=== PATIENT | female | born 1975 | race Caucasian/White ===

== ENCOUNTER 2023-11-21 15:52 | Emergency (ER) | payer MEDICAID, SELFPAY ==
[2023-11-21] VITALS (11 sets, daily range): BP systolic 113–133; BP diastolic 66–104; PULSE 76–101; RESP 11–24; TEMP 36.7–36.9; O2SAT 97–100; BMI 34.4
--- NOTE | 2023-11-21 16:13 | EDS_ITS ---
HPI History of Present Illness Chief Complaint: Palpitations [facility] Medical History (Updated 11/21/23 @ 16:02 by Kemi Maxwell) Hx pulmonary embolism Hx of blood clots Home Medications ?Medication ?Instructions ?Recorded ?Last Taken ?Type montelukast 10 mg tablet 10 mg PO QHS 11/21/23 Unknown History Allergy/AdvReac Type Severity Reaction Status Date / Time No Known Allergies Allergy Verified 11/21/23 15:59 Surgical History (Updated 11/21/23 @ 16:02 by Kemi Maxwell) Hx of hernia repair Hx of cholecystectomy Social History Smoking Status: Never smoker EXAM Physical Exam Const Vital Signs: 11/21/23 15:53 11/21/23 16:10 11/21/23 16:14 Temperature 98.0 F Temperature Source Oral Pulse Rate 85 Respiratory Rate 20 H Respiratory Effort Normal Respiratory Pattern Normal Blood Pressure 128/66 H Blood Pressure Mean 86 Pulse Ox 100 Oxygen Delivery Method Room Air Room Air 11/21/23 16:24 11/21/23 16:30 11/21/23 16:45 Temperature Temperature Source Pulse Rate 77 81 76 Respiratory Rate 14 11 L 16 Respiratory Effort Respiratory Pattern Blood Pressure 122/91 H Blood Pressure Mean 102 Pulse Ox 99 98 99 Oxygen Delivery Method Room Air 11/21/23 17:01 11/21/23 17:04 11/21/23 17:15 Temperature Temperature Source Pulse Rate 90 98 92 Respiratory Rate 18 22 H 24 H Respiratory Effort Respiratory Pattern Blood Pressure 132/88 H Blood Pressure Mean 97 Pulse Ox 100 100 99 Oxygen Delivery Method Room Air 11/21/23 17:30 11/21/23 17:45 11/21/23 18:00 Temperature Temperature Source Pulse Rate 93 92 101 H Respiratory Rate 12 23 H 18 Respiratory Effort Respiratory Pattern Blood Pressure 133/94 H 133/104 H Blood Pressure Mean 104 110 Pulse Ox 97 97 98 Oxygen Delivery Method Room Air MDM MDM MDM Narrative Medical decision making narrative: HISTORY OF PRESENT ILLNESS: 48-year-old female presents with palpitations. Per patient for the past 24 hours heart rate has been fluctuating high and low per her from the 50s to the 170s. Elevated heart rate is since resolved. She states she had been experiencing she has chest pain is since resolved. Notes left leg swelling as well that began Friday. Denies any hemoptysis, estrogen use. Denies any syncope. Denies any abdominal pain. Denies any sore throat fever or cough. REVIEW OF SYSTEMS: Pertinent positives: Palpitations, leg swelling, chest pain Pertinent negatives: Shortness of breath PHYSICAL EXAM: Nursing triage notes reviewed, Vital signs reviewed Constitutional: please see [facility] HENT: MMM Eyes: Pupils equal round and reactive to light, Extraocular muscles intact Neck: No stridor, no JVD, full neck ROM Lungs: Clear to auscultation, No wheezing or rales. No increased work of breathing, no conversational dyspnea, no accessory muscle use, no nasal flaring. No respiratory distress noted Heart: Regular rate and rhythm, No murmurs, No rubs and No gallops, 2+ distal pulses (radial, femoral, posterior tibial) in all extremities Abdomen: Soft, there is no tenderness, rigidity, rebound or guarding, no obvious peritoneal signs, no palpable pulsatile abdominal masses, no auscultated abdominal bruit : No CVAT Extremities: No edema Neuro: No focal neurological deficits, cranial nerves II through XII intact, 5/5 strength in all extremities. Intact sensation to light touch in all extremities, 2+ reflexes bilateral patella tendons. Normal gait. No ataxia. Skin: No rash or lesions noted MEDICAL DECISION MAKING: Chief Complaint: Palpitations External records reviewed: No chart in [facility]. Reviewed [facility] Factors affecting care: history of PE [facility] Narrative: The patient was initially hemodynamically stable, afebrile, nontoxic-appearing. Exam without focal cardiopulmonary normalities. I considered the following differential diagnosis: PE, DVT, pneumonia, ACS, arrhythmia, anemia ALL IMAGES (IF OBTAINED) HAVE BEEN PERSONALLY REVIEWED AND INTERPRETED BY MYSELF. EKG with normal sinus rhythm, normal axis, normal intervals, no STEMI, no signs of right heart strain to suggest PE CBC with leukocytosis, no anemia, no thrombocytopenia BMP without evidence of significant electrolyte abnormalities, no anion gap, no acute kidney injury. High-sensitivity troponin is negative, no evidence of myocardial ischemia I have personally reviewed the patient's chest x-ray. Chest x-ray is unremarkable for pulmonary edema, pneumothorax, pneumonia or focal cardiopulmonary abnormality. CT of the chest is negative for PE Duplex ultrasound left lower extremities negative for DVT The synthesis of the patient's history, physical exam, labs images suggest no acute life-limiting etiology specifically no sign of PE DVT, Myocard ischemia, heart failure, significant anemia, septic electrolyte abnormalities, pneumonia or pneumothorax. The patient is appropriate discharge home with close outpatient follow with her PCP The patient and/or family, caregivers express understanding. The patient and/or family, caregivers agrees with the plan. Shared decision making: I will have a discussion with the patient and or visitors regarding risk/benefits of further testing or admission. They will be made aware of of the risk/benefits inherent in this decision they will be given the opportunity to voice understanding. Total critical care time today provided was at least 0 minutes. This excludes separately billable procedures. Critical care time (if documented) is secondary to the patient having high probability of clinically significant/life threatening deterioration in the patient's condition which required my urgent intervention. Impression: 1. Palpitations 2. Chest pain Dispo: Discharge This note was generated with [employer] dictation software. It may contain incorrect words, spelling, and punctuation that were not noted in review of the chart prior to signing. Lab Data Labs: Laboratory Results - last 24 hr 11/21/23 16:14 WBC 11.3 H RBC 4.54 Hgb 13.5 Hct 41.5 MCV 91.4 MCH 29.7 MCHC 32.5 RDW Std Deviation 48.7 H RDW Coeff of Ziyad 14.5 Plt Count 365 MPV 9.5 Immature Gran % (Auto) 0.700 Neut % (Auto) 69.3 Lymph % (Auto) 21.2 Prentiss % (Auto) 7.5 Eos % (Auto) 0.9 Baso % (Auto) 0.4 Absolute Neuts (auto) 7.8 H Absolute Lymphs (auto) 2.39 Nucleated RBC % 0 Sodium 139 Potassium 4.0 Chloride 108 H Carbon Dioxide 25.0 Anion Gap 6 BUN 8 Creatinine 0.59 Estim Creat Clear Calc 118.22 Est GFR (MDRD) Af Amer 141 Est GFR (MDRD) Non-Af 116 BUN/Creatinine Ratio 13.6 Glucose 112 H Calcium 9.6 Troponin I High Sens 6 Radiography Diagnostic Testing: Clinical Impression(s) from Imaging Studies Chest X-Ray 11/21/23 16:15 IMPRESSION: Minimal discoid atelectasis or scarring in the right lower lobe.. No focal infiltration or gross pulmonary edema Electronically Signed: Rick Ward MD at 17:05 EDT , Chest CTA 11/21/23 16:27 IMPRESSION: Mild subsegmental atelectasis right upper lobe and minor subsegmental atelectasis in both lower lobes.. No evidence for pulmonary embolus Electronically Signed: Rikc Ward MD at 17:44 EDT , Discharge Plan Triage Chief Complaint: Palpitations ED Provider: Brannon Monzon Dx/Rx/DC Orders Prescriptions: No Action montelukast 10 mg tablet 10 mg PO QHS Primary Care Provider: Tin Cabral Referrals: [facility] Doctor,Out of [Non-Staff] - Print Language: Vietnamese
--- NOTE | 2023-11-21 16:13 | EKG12_ITS ---
Test Reason : Blood Pressure : / mmHG Vent. Rate : 076 BPM Atrial Rate : 076 BPM P-R Int : 142 ms QRS Dur : 096 ms QT Int : 382 ms P-R-T Axes : 048 022 053 degrees QTc Int : 429 ms Normal sinus rhythm with sinus arrhythmia Incomplete right bundle branch block Borderline ECG Confirmed by Jeffrey Briones ([id number]), slot editor CIRILO DUGGAN ([id number]) on 11/24/2023 9:42:14 AM Referred By: Confirmed By:Jeffrey Briones
--- NOTE | 2023-11-21 16:15 | RAD_ITS ---
STUDY: X-RAY CHEST REASON FOR EXAM: Female, 48 years old. chest pain TECHNIQUE: AP portable COMPARISON: None. FINDINGS: There is minimal discoid atelectasis or scarring in the right lower lobe. There is no demonstrated pleural abnormality. Normal size heart. Normal mediastinum and coy. Normal visualized pulmonary arteries. Normal visualized aortic arch and descending thoracic aorta. Normal visualized thoracic spine. Normal visualized ribs, clavicles, and shoulders. There is no demonstrated abnormality of the visualized soft tissue structures of the upper abdomen. RAD/Chest 1 View (Portable) IMPRESSION: Minimal discoid atelectasis or scarring in the right lower lobe.. No focal infiltration or gross pulmonary edema Electronically Signed: Rick Ward MD at 17:05 EDT ,
[2023-11-21 16:26] LABS: Absolute Lymphocyte Count 2.39 X10^3/uL (0.83-4.51); Absolute Neutrophil Count 7.8 X10^3/uL (2.0-7.7); Basophil# 0.05 X10^3/uL; Basophil% 0.4 % (0-1); Eosinophils% 0.9 % (0-5); Hematocrit 41.5 % (37-47); Hemoglobin 13.5 g/dL (12.0-15.0); Lymphocyte # 2.39 X10^3/ul (0.83-4.51); Lymphocyte % 21.2 % (19-41); Mean Corp Hgb Conc 32.5 g/dL (32-36); Mean Corpuscular Hgb 29.7 pg (27.0-32.0); Mean Corpuscular Volume 91.4 fL (81-99); Mean Platelet Vol. 9.5 fl (6.2-12.0); Monocyte# 0.84 X10^3/uL; Monocyte% 7.5 % (0-10); NRBC Flagged by Analyzer 0 % (0-5); Neutrophil # 7.79 X10^3/uL (2.7-7.7); Neutrophil % 69.3 % (47-70); Platelet Count 365 K/mm3 (150-450); RBC Distribution Width CV 14.5 % (11.6-14.6); RBC Distribution Width SD 48.7 fl (35.1-43.9); Red Blood Count 4.54 M/mm3 (4.2-5.4); White Blood Count 11.3 K/mm3 (4.4-11.0)
--- NOTE | 2023-11-21 16:27 | CT_ITS ---
STUDY: CTA CHEST REASON FOR EXAM: Female, 48 years old. SOB, palpitations hx of PE RADIATION DOSAGE (If Supplied By Facility): CTDIvol = ( 12.32 ) mGy, DLP = ( 401.82 ) mGycm TECHNIQUE: The examination was performed with the intravenous administration of IV 100mL [id number]-[id number]. Post-processing of the angiographic images was performed, with multiplanar reformation and 3D reconstruction. Individualized dose optimization techniques were used for this CT. COMPARISON: None. FINDINGS: Normal enhancement of the main pulmonary artery and right and left pulmonary arteries. Normal enhancement of the bilateral peripheral pulmonary arteries. There is no demonstrated pulmonary embolism. Normal thoracic aorta and visualized great vessels. There is no demonstrated aortic dissection. Heart size is normal. There is minor coronary artery calcification Normal mediastinum. Normal hilar regions. Normal visualized trachea and bronchi. The lungs are well expanded. There is mild subsegmental atelectasis in the right upper lobe and minor subsegmental atelectasis in both lower lobes Normal pleura. Normal chest wall structures. Normal osseous structures. Normal visualized upper abdomen. Gallbladder has been removed surgically CT/CTA Chest W/WO Contrast IMPRESSION: Mild subsegmental atelectasis right upper lobe and minor subsegmental atelectasis in both lower lobes.. No evidence for pulmonary embolus Electronically Signed: Rick Ward MD at 17:44 EDT ,
[2023-11-21 17:04] LABS: Anion Gap 6 (5-15); BUN 8 mg/dL (7-18); BUN/Creat Ratio 13.6 RATIO (10-20); Calcium,Total 9.6 mg/dL (8.5-10.1); Chloride 108 mmol/L (98-107); Creatinine, Serum 0.59 mg/dL (0.55-1.02); EST Glomerular Filtration Rate 116 mL/min (>60); Est Glom Filt Rate - Afr Amer 141 mL/min (>60); Estimated Creatinine Clearance 118.22 ml/min; Glucose 112 mg/dL (74-106); Sodium Level 139 mmol/L (136-145); Troponin-I HS 6 pg/mL (3.0-54.0)
== END 2023-11-21 18:50 | disposition home or self-care (01) ==
PROVIDERS: Emergency Provider Emergency Medicine; PCP Student in an Organized Health Care Education/Training Program; Visit Provider Emergency Medicine
DX: R00.2 Palpitations (principal); R07.9 Chest pain, unspecified; Z90.49 Acquired absence of other specified parts of digestive tract
CPT/HCPCS: 71045; 71275; 80048; 84484; 85025; 93005; 93971; 99285; Q9967; A4216